=== PATIENT | female | born 1965 | race Caucasian/White ===

== ENCOUNTER 2024-05-10 17:24 | Emergency (ER) | payer OTHER, SELFPAY ==
[2024-05-10 17:31] VITALS: BP 165/104
--- NOTE | 2024-05-10 18:42 | ED.MUSCINJ ---
HPI-Injury
General
Chief Complaint: Musculo-Skeletal Complaint
Source: patient
Exam Limitations: none
Time Seen by Provider: 05/10/24 17:59
Nursing documentation reviewed up to this point in time: agreed with
History of Present Illness-Injury
Is this injury a work related problem?: No
Is pt an associate of [facility]?: No
Initial Injury comments:
Patient states she tripped over a box and fell. Denies hitting her head. No LOC. Complains of pain and swelling to left wrist. Injury occurred just [employer]
Past History
Past History
ED Past Medical History: Other (SVT, scoliosis)
ED Past Surgical History: None
Social History
Tobacco: Non-smoker
Alcohol: Occasional
Personal:
Living: with family
Review of Systems
Review of Systems
Allergies reviewed?: Yes
All Other Systems: ROS reviewed and negative except as documented in HPI and ROS
Constitutional: Reports no symptoms
Musculoskeletal: Reports joint pain (pain to left wrist)
Skin: Reports no symptoms
Neurological: Reports no symptoms
Psychiatric: Reports no symptoms
Musculoskeletal Injury Exam
Musculoskeletal Injury Exam
Left Wrist:
Pain with Movement?: Moderate
Tender to palpation?: Moderate
Soft tissue swelling?: Moderate
External deformity and angulation?: None
Joint effusion?: None
Contusion?: None
Hematoma-local bleeding into tissue?: Mild
Strain- Sprain- Tear (Connective tissue injury)?: Moderate
Crepitus with movement?: No
Joint instability?: No
Malalignment/deformity?: No
Range of motion: Limited
Distal skin color and temperature: normal-warm & good color
Capillary Refill: normal
Normal distal neurovascular exam?: Yes
Peripheral Pulses: radial (left): 3+
Phy Exam
General Physical Exam
General Presentation: well appearing and mild distress
General age: appears stated age
General Skin: warm and dry
General Habitus: normal
Musculoskeletal Exam
Musculoskeletal Exam: neuro vasc intact
Skin Exam
Skin Exam: normal color, warm/dry and no rash
Psychiatric Exam
Psychiatric Exam: normal mood/affect
Injury Course
Orders/Labs/Results
Orders:
Orders
05/10/24 17:31
Wrist, Left 3 Views CR [CR Wrist - Left Min 3 Views] Urgent
Comment:
Reason For Exam: fall
05/10/24 18:44
Sling Left-Treatment ONCE
Volar Left-Treatment ONCE
05/10/24 18:50
Hydrocodone 5/APAP 325 [[place] 5/325] 1 tablet PO NOW STA
*Radiology
Radiology exam reviewed: radiology read reviewed
*Pulse Oximetry
Patient hypoxic: no
*Critical Care Note
Total Time (30-74mins, 75-104mins- exclusive of procedures): Not Applicable
ED Attending Note
-
Portions of this chart may have been created with voice recognition software.� Occasional wrong word or��sound alike� substitutions may have occurred due to the inherent limitations of voice recognition software.
Discharge Plan
Departure
Patient Disposition: Home (Routine Discharge)
Date of Disposition: 05/10/24
Time of Disposition: 18:45
Patient with high blood pressure during this ER visit?: No
Condition: Good
Covid-19: Not Applicable
Discharge Problem:
Fracture of wrist
Instructions: Wrist Fracture (DC), How to Use a Shoulder Sling, Using Cold for Pain, Splint Care
Prescriptions:
New
hydrocodone-acetaminophen 5-325 mg tablet
1 tab PO Q4H PRN (Reason: Pain) Qty: 14 0RF
No Action
docosahexaenoic acid-epa 1 CAP capsule
1 cap PO BID
multivitamin with folic acid [Tab-A-Kandace] 1 TABLET tablet
1 tab PO DAILY
turmeric-turmeric root extract 1 EACH capsule
1 ea PO DAILY
lidocaine 1 PATCH adhesive patch,medicated
1 patch topical DAILYPRN PRN (Reason: lower back pain)
atorvastatin 40 MG tablet
40 mg PO QPM Qty: 90 3RF
carvedilol 12.5 MG tablet
12.5 mg PO BID Qty: 180 3RF
clopidogrel 75 MG tablet
75 mg PO DAILY Qty: 90 3RF
pantoprazole 40 MG tablet,delayed release (DR/EC)
40 mg PO DAILY Qty: 90 3RF
aspirin 81 MG tablet,chewable
81 mg PO DAILY 0RF
Referrals:
Екатерина Bardales DO [Active] - Call in 1-3 days for appt
Jhony Cortez DO [Family Provider] -
Interventions
Interventions:
*Risk Screen - Suicide Last Done: 05/10/24 17:32
*Neglect/Abuse Screening Last Done: 05/10/24 17:32
ED-Musculoskeletal Assessment Last Done: 05/10/24 17:44
Discharge Date and Time
Print Language: PORTUGUESE
[2024-05-10] MEDS: NORCO 5/325 1 TABLET PO (19:00)
== END 2024-05-10 19:25 | disposition home or self-care (01) ==
LOC: EMR 17:24
PROVIDERS: EMERGENCY PHYSICIAN Student in an Organized Health Care Education/Training Program; FAMILY PHYSICIAN Family Medicine
DX: S62.102A Fracture of unspecified carpal bone, left wrist, initial encounter for closed fracture (principal); W18.09XA Striking against other object with subsequent fall, initial encounter
CPT/HCPCS: 29125; 99283; 73110

== ENCOUNTER 2024-12-27 11:20 | Emergency (ER) | payer OTHER, SELFPAY ==
[2024-12-27 11:22] VITALS: BP 168/111
[2024-12-27 11:54] VITALS: BMI 29.5
[2024-12-27] MEDS: TORADOL 30 MG IV (12:03)
[2024-12-27] MEDS: VALIUM 5 MG PO (12:04)
--- NOTE | 2024-12-27 12:12 | ED.GENMED ---
History of Present Illness
General
Chief Complaint: Musculo-Skeletal Complaint
Source: patient and spouse
Exam Limitations: none
Time Seen by Provider: 12/27/24 11:33
Nursing documentation reviewed up to this point in time: agreed with
History of Present Illness
History of Present Illness:
59-year-old female past medical history of cardiomyopathy previous NH presenting to emergency department today with concerns of right-sided neck pain specifically with movement seem to for started earlier this morning progressed today physical
muscle spasm. No referred pain no numbness or weakness no chest pain or shortness of breath. Recently tested for pneumonia from urgent care. Imaging was negative but was prescribed antibiotic as well as Tessalon Perles.
Past History
Past History
ED Past Medical History: Other (SVT, scoliosis)
ED Past Surgical History: None
Social History
Tobacco: Non-smoker
Alcohol: Occasional
Personal:
Living: with family
Review of Systems
Review of Systems
Allergies reviewed?: Yes
All Other Systems: ROS reviewed and negative except as documented in HPI and ROS
Phy Exam
Physical Exam
Physical Exam:
GENERAL: Alert , in no apparent distress
EYE: pupils equal and reactive
NECK: Supple, no significant adenopathy.
ENT: Muscle spasm of the right sided sternocleidomastoid. o/p clr, mmm.
CARDIAC: Regular rate and rhythm .
LUNGS: Clear breath sounds bilaterally, no acute respiratory distress, no wheezes/rales/rhonchi
ABDOMEN: Soft, without focal tenderness, no r/g, no cvat
NEUROLOGICAL: Alert and oriented, no focal neuro deficits
SKIN: Warm and dry, skin intact.
MUSCULOSKELETAL: Muscle spasm to the right side of the neck no edema, well perfused.
PSYCH: Normal and appropriate interaction.
Course
Orders/Labs/Results
Orders:
Orders
12/27/24 11:47
Diazepam [Valium] 5 mg PO NOW STA
Ketorolac [Toradol] 30 mg IV NOW STA
12/27/24 12:06
CBC/With Diff [Complete Blood Count/With Diff] Urgent
CMP [Comprehensive Metabolic Panel] Urgent
12/27/24 12:17
EKG [Electrocardiogram (*1)] Urgent
Reason for Study: Chest Pain
EKG- Treatment ONCE
0.9% Sodium Chloride 1000 ml [Nss] 1,000 ml IV BOLUS
Abnormal Lab Results
12/27/24
12:06
Monocytes % 10.0 H %
(1.7-9.3)
Sodium 133 L mmol/L
(135-145)
Chloride 97 L mmol/L
(98-107)
Glucose 107 H mg/dl
(70-99)
AST 61 H U/L
(14-36)
ALT 70 H U/L
(0-35)
12/27/24 12:06
12/27/24 12:06
Vital Signs
Initial and Last Documented VS:
Initial Vital Signs
Temp Pulse Resp BP Pulse Ox
98.8 F 126 20 168/111 97
12/27/24 11:22 12/27/24 11:22 12/27/24 11:22 12/27/24 11:22 12/27/24 11:22
Last Documented Vital Signs
Temp Pulse Resp BP Pulse Ox
98.8 F 126 20 168/111 97
12/27/24 11:22 12/27/24 11:22 12/27/24 11:22 12/27/24 11:22 12/27/24 12:17
MDM/Problems Addressed
MDM/Problems Addressed:
59-year-old female presenting to the emergency department today with concerns of right-sided neck pain starting early this morning ongoing today severe prior to arrival. No associated shortness of breath nausea vomit weakness. Patient treated with
Valium as well as Toradol here with significant improvement of symptoms. Symptoms do seem to be consistent with mechanical pain considering it is reproducible with movement palpation. Plan for close outpatient follow-up otherwise return
precautions given.
*Pulse Oximetry
SaO2: 97
Oxygen Mode of Delivery: Room air
Patient hypoxic: no (97)
*Critical Care Note
Total Time (30-74mins, 75-104mins- exclusive of procedures): Not Applicable
ED Attending Note
-
Portions of this chart may have been created with voice recognition software.� Occasional wrong word or��sound alike� substitutions may have occurred due to the inherent limitations of voice recognition software.
Discharge Plan
Departure
Patient Disposition: Home (Routine Discharge)
Date of Disposition: 12/27/24
Time of Disposition: 13:21
Patient with high blood pressure during this ER visit?: No
Condition: Good
Covid-19: Not Applicable
Discharge Problem:
Neck strain
Instructions: Muscle Strain (DC)
Prescriptions:
New
tizanidine [Zanaflex] 4 mg capsule
4 mg PO BID PRN (Reason: muscle spasticity) Qty: 7 0RF
No Action
docosahexaenoic acid-epa 1 CAP capsule
1 cap PO BID
multivitamin with folic acid [Tab-A-Kandace] 1 TABLET tablet
1 tab PO DAILY
turmeric-turmeric root extract 1 EACH capsule
1 ea PO DAILY
lidocaine 1 PATCH adhesive patch,medicated
1 patch topical DAILYPRN PRN (Reason: lower back pain)
atorvastatin 40 MG tablet
40 mg PO QPM Qty: 90 3RF
carvedilol 12.5 MG tablet
12.5 mg PO BID Qty: 180 3RF
clopidogrel 75 MG tablet
75 mg PO DAILY Qty: 90 3RF
pantoprazole 40 MG tablet,delayed release (DR/EC)
40 mg PO DAILY Qty: 90 3RF
aspirin 81 MG tablet,chewable
81 mg PO DAILY 0RF
hydrocodone-acetaminophen 5-325 mg tablet
1 tab PO Q4H PRN (Reason: Pain) Qty: 14 0RF
Referrals:
Jhony Cortez, DO [Family Provider, Family Practice]
Activity Restrictions/Additional Instructions:
You came to the emergency department today with concerns of neck pain. This is likely a muscle strain. Please take prescribed medication and follow-up closely as an outpatient with a primary care doctor. Return for any worsening, new or
concerning symptoms.
Interventions
Interventions:
*Risk Screen - Suicide Last Done: 12/27/24 11:22
*General Assessment Last Done: 12/27/24 11:55
*Neglect/Abuse Screening Last Done: 12/27/24 11:22
*ED- Fall Risk Assessment Last Done: 12/27/24 11:55
*ED COVID-19 Vaccine History Last Done: 12/27/24 11:55
*ED Influenza Vaccine History Last Done: 12/27/24 11:55
ED-Musculoskeletal Assessment Last Done: 12/27/24 11:55
Discharge Date and Time
Print Language: ICELANDIC
[2024-12-27 12:23] LABS: Hematocrit 40.0 % (37.0-47.0); Hemoglobin 13.4 g/dL (12.0-16.0); Mean Corp Hgb Conc. 33.5 g/dL (33.0-37.0); Mean Corpuscular Volume 89.3 fL (81.0-99.0); Nucleated Red Blood Cells % 0 %; Platelet Count 230 10^3/uL (130-400); Red Cell Dist. Width 14.2 % (11.5-14.5)
[2024-12-27 12:30] LABS: ALT (SGPT) 70 U/L (0-35); AST (SGOT) 61 U/L (14-36); Albumin 4.6 g/dl (3.5-5.0); Alkaline Phosphatase 47 U/L (38-126); Blood Urea Nitrogen 15 mg/dl (7-17); Calcium 9.6 mg/dl (8.4-10.2); Carbon Dioxide 29 mmol/L (22-30); Chloride 97 mmol/L (98-107); Estimated Creatinine Clearance 116 ml/min; Glucose 107 mg/dl (70-99); Potassium 4.6 mmol/L (3.5-5.1); Sodium 133 mmol/L (135-145); Total Protein 7.4 g/dl (6.3-8.2); eGFR > 60.00
[2024-12-27] MEDS: NSS 1000 IV (12:49)
[2024-12-27 14:46] VITALS: BP 131/82
== END 2024-12-27 14:47 | disposition home or self-care (01) ==
LOC: EMR 11:20
PROVIDERS: Physician Assistant; EMERGENCY PHYSICIAN Student in an Organized Health Care Education/Training Program; FAMILY PHYSICIAN Family Medicine
DX: S16.1XXA Strain of muscle, fascia and tendon at neck level, initial encounter (principal); X58.XXXA Exposure to other specified factors, initial encounter; I42.9 Cardiomyopathy, unspecified; I25.2 Old myocardial infarction; M41.9 Scoliosis, unspecified; Z79.82 Long term (current) use of aspirin; Z79.02 Long term (current) use of antithrombotics/antiplatelets
CPT/HCPCS: 99284; 96374; 96361; 80053; 85025; 93005

== ENCOUNTER 2025-01-29 18:00 | Inpatient (IN) | payer OTHER, SELFPAY ==
[2025-01-29] VITALS (28 sets, daily range): BP systolic 90–131; BP diastolic 49–87; BMI 29.5; BMI 28.5
[2025-01-29 13:14] LABS: Hematocrit 39.6 % (37.0-47.0); Hemoglobin 13.4 g/dL (12.0-16.0); Mean Corp Hgb Conc. 33.8 g/dL (33.0-37.0); Mean Corpuscular Volume 87.6 fL (81.0-99.0); Nucleated Red Blood Cells % 0 %; Platelet Count 227 10^3/uL (130-400); Red Cell Dist. Width 14.0 % (11.5-14.5)
--- NOTE | 2025-01-29 13:21 | ED.GENMED ---
History of Present Illness
<FLORIDALMA Romero - Last Filed: 01/29/25 17:25>
General
Chief Complaint: Heart Rate Problem
Source: patient
Exam Limitations: none
Time Seen by Provider: 01/29/25 13:20
Nursing documentation reviewed up to this point in time: agreed with
History of Present Illness
History of Present Illness:
59 yr old female with PMH of Takotsubo cardiomyopathy(2019) hyperlipidemia SVT scoliosis presents to the ED for evaluation. PT reports yesterday she felt off all day and last night she felt her heart pounding around 11: 30 pm. She reports her
watch told her that her HR was 169. She did sleep however presents with persistent symptoms.
She denies any associated chest pain. She does feel slightly short of breath with symptoms. No prior history of arrhythmias.
She is presently on carvedilol no other cardiac medicines. She is followed by [facility] hydrometer tester Dr. Bernardo Mcguire
Past History
<FLORIDALMA Romero - Last Filed: 01/29/25 17:25>
Past History
ED Past Medical History: Other (SVT, scoliosis)
ED Past Surgical History: None
Social History
Tobacco: Non-smoker
Alcohol: Occasional
Personal:
Living: with family
Phy Exam
<FLORIDALMA Romero - Last Filed: 01/29/25 17:25>
General Physical Exam
General Presentation: no apparent distress
General age: appears stated age
General Skin: warm and dry
General Habitus: normal
General Mental: alert
General Hydration: appears well hydrated
Cardiovascular Exam
Cardiovascular Exam: irregularly irregular
Pulmonary Exam
Pulmonary Exam: lungs clear and no respiratory distress
Neurological Exam
Neurological Exam: alert and oriented x3
Musculoskeletal Exam
Musculoskeletal Exam: full ROM
Skin Exam
Skin Exam: normal color and warm/dry
Psychiatric Exam
Psychiatric Exam: normal mood/affect
Scores
<Kelly Bhakta DO - Last Filed: 01/30/25 08:32>
[id number] Score for Afib Stroke Risk
Age in Years (65=0, 65-74=1, >/=75=2): <65
Sex (Female=+1): Female
Congestive Heart Failure History (Yes=+1): No
Hypertension History (Yes=+1): No
Stroke/TIA/Thromboembolism History (Yes=+2): No
Vascular Disease History (Yes=+1): No
Diabetes Mellitus (Yes=+1): No
Score: 1
Anticoagulation Recommendations: Consider anticoagulation (as validated in nonvalvular fib)
Course
<FLORIDALMA Romero - Last Filed: 01/29/25 17:25>
Orders/Labs/Results
Orders:
Orders
01/29/25 12:53
Electrocardiogram (*1) Urgent
Reason for Study: Tachycardia
EKG- Treatment ONCE
01/29/25 12:58
Complete Blood Count/With Diff Urgent
NT-proBNP Urgent
TSH Reflex To Free T4 Urgent
Troponin I Urgent
01/29/25 12:59
Comprehensive Metabolic Panel Urgent
01/29/25 13:34
0.9% Sodium Chloride 1000 ml [Nss] 1,000 ml IV BOLUS
01/29/25 13:39
Diltiazem HCl [Cardizem] 10 mg IV NOW STA
01/29/25 13:45
Diltiazem 125 mg/125 ml Nss [Cardizem] 125 mg in 125 ml IV PER PROTOCOL
Initial dose in mg/hr, then titrate:: 5
Titrate to keep:: Heart rate 80-100 bpm
Titrate by mg/hr:: 5 mg/hr
Frequency of titrations (minutes):: 15
Maximum dose in mg/hr:: 15
01/29/25 15:52
Chest X-ray Portable [CR Chest Portable - 1 View] Urgent
Comment:
Reason For Exam: elevated hr
Reason Study Needs to be Portable: Patient Unstable
01/29/25 17:13
Admit/Transfer Patient As Directed
Co-Sign Provider:
Level of Care: Inpatient admission
Assign to:: IMU- Intermediate Care
Physician / Group: Hospitalist
Diagnosis: Afib
Reason for Hospitalization: Afib
Expected length of stay greater than two midnights?: Yes
ELOS- Estimated Length of Stay in days: 3
I certify the patient meets the requirements for IP care: Yes
PRN Pain Medication Management As Directed
May give lesser potent ordered pain med per pt: Yes
preference::
Protocol:: Medication orders for pain may be administered in a
manner that supports deferring to patient preference
when the pt is:
- Requesting an ordered lesser potent pain medication.
Least to most potent pain medications are defined
as: acetaminophen < NSAID < tramadol < opioids
(morphine, oxycodone, hydromorphone).
- Requesting a lesser dose of the same medication IF
ORDERED.
- Requesting a less intrusive route of administration
if both routes are prescribed by the provider (PO <
IV).
01/29/25 17:15
Code Status As Directed
Resuscitation Status: Full Code
01/29/25 20:00
Apixaban [Eliquis] 5 mg PO BID
01/29/25 20:37
Carvedilol [Coreg] 12.5 mg PO BID
Tramadol HCl [Ultram] 50 mg PO Q6HPRN PRN mild pain
01/29/25 20:37
Activity As Directed
Activity Level: Ambulate
INT (Intravenous Needle Therapy) As Directed
Comment: maintain peripheral IV access
Intake/ Output As Directed
Frequency: Per unit guidelines
Pneumatic Compression Sleeves As Directed
Type: Knee high
Vital Signs As Directed
Frequency: q4h
Weight As Directed
Frequency: Daily
DX Deep Vein Thrombosis Video Routine
01/29/25 22:19
Glycohemoglobin (HgbA1c) Routine
Troponin I Q3H
Comment: at admit & Q3H for 3 total including ED draws, obtain ECG with each level
01/30/25 03:22
Basic Metabolic Panel IN AM
Cardiovascular Evaluation IN AM
Complete Blood Count/No Diff IN AM
Magnesium IN AM
Troponin I Q3H
Comment: at admit & Q3H for 3 total including ED draws, obtain ECG with each level
01/30/25 Breakfast
NPO
Allow oral meds: Yes
Allow clear liquids: 4hrs prior to procedure
Comment: may have unrestricted clear liquid up to 4 hrs prior to scheduled procedure
01/30/25 07:07
Echo 2D MMode Color/Doppler Routine
Reason for Study: New atrial fibrillation
Cardiology Consult: Miek Sampson
01/30/25 08:00
Aspirin Chewable [Low Strength Aspirin] 81 mg PO DAILY
Cholecalciferol (Vitamin D3) [VITAMIN D3 (cholecalciferol)] 25 mcg PO DAILY
Abnormal Lab Results
01/29/25 01/29/25
12:58 12:59
Absolute Monos (auto) 0.9 H 10^3/uL
(0.1-0.6)
Monocytes % 11.7 H %
(1.7-9.3)
Glucose 114 H mg/dl
(70-99)
01/29/25 12:58
01/29/25 12:59
Vital Signs
Initial and Last Documented VS:
Initial Vital Signs
Temp Pulse Resp BP Pulse Ox
98.7 F 160 18 120/80 98
01/29/25 12:37 01/29/25 12:37 01/29/25 12:37 01/29/25 12:37 01/29/25 12:37
Last Documented Vital Signs
Temp Pulse Resp BP Pulse Ox
98.7 F 80 17 97/65 93
01/29/25 23:00 01/30/25 06:00 01/30/25 06:00 01/30/25 06:00 01/30/25 04:00
Hospice Fellow consulted with Physician
Hospice Fellow consulted with physician?: Yes
Name of Physician Consulted: Dr Bhakta
<Kelly Bhakta, DO - Last Filed: 01/30/25 08:32>
Orders/Labs/Results
Orders:
Orders
01/29/25 12:53
Electrocardiogram (*1) Urgent
Reason for Study: Tachycardia
EKG- Treatment ONCE
01/29/25 12:58
Complete Blood Count/With Diff Urgent
NT-proBNP Urgent
TSH Reflex To Free T4 Urgent
Troponin I Urgent
01/29/25 12:59
Comprehensive Metabolic Panel Urgent
01/29/25 13:34
0.9% Sodium Chloride 1000 ml [Nss] 1,000 ml IV BOLUS
01/29/25 13:39
Diltiazem HCl [Cardizem] 10 mg IV NOW STA
01/29/25 13:45
Diltiazem 125 mg/125 ml Nss [Cardizem] 125 mg in 125 ml IV PER PROTOCOL
Initial dose in mg/hr, then titrate:: 5
Titrate to keep:: Heart rate 80-100 bpm
Titrate by mg/hr:: 5 mg/hr
Frequency of titrations (minutes):: 15
Maximum dose in mg/hr:: 15
01/29/25 15:52
Chest X-ray Portable [CR Chest Portable - 1 View] Urgent
Comment:
Reason For Exam: elevated hr
Reason Study Needs to be Portable: Patient Unstable
01/29/25 17:13
Admit/Transfer Patient As Directed
Co-Sign Provider:
Level of Care: Inpatient admission
Assign to:: IMU- Intermediate Care
Physician / Group: Hospitalist
Diagnosis: Afib
Reason for Hospitalization: Afib
Expected length of stay greater than two midnights?: Yes
ELOS- Estimated Length of Stay in days: 3
I certify the patient meets the requirements for IP care: Yes
PRN Pain Medication Management As Directed
May give lesser potent ordered pain med per pt: Yes
preference::
Protocol:: Medication orders for pain may be administered in a
manner that supports deferring to patient preference
when the pt is:
- Requesting an ordered lesser potent pain medication.
Least to most potent pain medications are defined
as: acetaminophen < NSAID < tramadol < opioids
(morphine, oxycodone, hydromorphone).
- Requesting a lesser dose of the same medication IF
ORDERED.
- Requesting a less intrusive route of administration
if both routes are prescribed by the provider (PO <
IV).
01/29/25 17:15
Code Status As Directed
Resuscitation Status: Full Code
01/29/25 20:00
Apixaban [Eliquis] 5 mg PO BID
01/29/25 20:37
Carvedilol [Coreg] 12.5 mg PO BID
Tramadol HCl [Ultram] 50 mg PO Q6HPRN PRN mild pain
01/29/25 20:37
Activity As Directed
Activity Level: Ambulate
INT (Intravenous Needle Therapy) As Directed
Comment: maintain peripheral IV access
Intake/ Output As Directed
Frequency: Per unit guidelines
Pneumatic Compression Sleeves As Directed
Type: Knee high
Vital Signs As Directed
Frequency: q4h
Weight As Directed
Frequency: Daily
DX Deep Vein Thrombosis Video Routine
01/29/25 22:19
Glycohemoglobin (HgbA1c) Routine
Troponin I Q3H
Comment: at admit & Q3H for 3 total including ED draws, obtain ECG with each level
01/30/25 03:22
Basic Metabolic Panel IN AM
Cardiovascular Evaluation IN AM
Complete Blood Count/No Diff IN AM
Magnesium IN AM
Troponin I Q3H
Comment: at admit & Q3H for 3 total including ED draws, obtain ECG with each level
01/30/25 Breakfast
NPO
Allow oral meds: Yes
Allow clear liquids: 4hrs prior to procedure
Comment: may have unrestricted clear liquid up to 4 hrs prior to scheduled procedure
01/30/25 07:07
Echo 2D MMode Color/Doppler Routine
Reason for Study: New atrial fibrillation
Cardiology Consult: Mike Sampson
01/30/25 08:00
Aspirin Chewable [Low Strength Aspirin] 81 mg PO DAILY
Cholecalciferol (Vitamin D3) [VITAMIN D3 (cholecalciferol)] 25 mcg PO DAILY
Abnormal Lab Results
01/29/25 01/29/25
12:58 12:59
Absolute Monos (auto) 0.9 H 10^3/uL
(0.1-0.6)
Monocytes % 11.7 H %
(1.7-9.3)
Glucose 114 H mg/dl
(70-99)
01/29/25 12:58
01/29/25 12:59
Vital Signs
Initial and Last Documented VS:
Initial Vital Signs
Temp Pulse Resp BP Pulse Ox
98.7 F 160 18 120/80 98
01/29/25 12:37 12/15/25 12:37 01/29/25 12:37 01/29/25 12:37 01/29/25 12:37
Last Documented Vital Signs
Temp Pulse Resp BP Pulse Ox
98.7 F 80 17 97/65 93
01/29/25 23:00 01/30/25 06:00 01/30/25 06:00 01/30/25 06:00 01/30/25 04:00
<FLORIDALMA Romero - Last Filed: 01/29/25 17:25>
MDM/Problems Addressed
Differential Diagnosis Includes:
Not limited to A-fib
MDM/Problems Addressed:
As documented patient is a 59-year-old female with Takotsubo cardiomyopathy SVT presented in rapid A-fib. She 'did not feel right' yesterday and last night her heart rate was in the 160s. No known prior history of documented bleeding.
Patient presented with heart rate as high as the 160s here in the ER.
Patient was given a liter of fluids and is on max dose of Cardizem however still tachycardic as high as the 120s. Blood pressure in the high 90s at this time. She has no associated chest pain. No shortness of breath she is well-appearing. Labs
reviewed no history of CHF BNP is elevated will check a chest x-ray. Patient will require admission. Case discussed with ED physician case discussed with cardiology on-call Dr. Marcos who will see patient. Recommend admission to hospital service.
Chronic conditions affecting care:
Takotsubo cardiomyopathy
<FLORIDALMA Romero - Last Filed: 01/29/25 17:25>
*Radiology
Radiology exam reviewed: radiology read reviewed
*Pulse Oximetry
SaO2: 98
Oxygen Mode of Delivery: Room air
Patient hypoxic: no
*EKG
Interpreted by ED Provider?: Yes
Heart Rate: 152
Rate: tachycardiac
Rhythm: a-fib
*Critical Care Note
Total Time (30-74mins, 75-104mins- exclusive of procedures): Not Applicable
<FLORIDALMA Romero - Last Filed: 01/29/25 17:25>
Patient Management
Discussion with other providers: Admission Nurse Coordinator (cardiology DR Marcos )
ED Attending Note
<FLORIDALMA Romero - Last Filed: 01/29/25 17:25>
-
Portions of this chart may have been created with voice recognition software.� Occasional wrong word or��sound alike� substitutions may have occurred due to the inherent limitations of voice recognition software.
<Kelly Bhakta DO - Last Filed: 01/30/25 08:32>
ED Attending Note
Patient seen and examined by attending physician: Yes
I performed the substantive portion of visit, reviewed & personally made and approve the management plan that is documented in note by myself or BELL.: Yes
I performed a history and physical exam of patient and discussed management with resident, I reviewed resident's note and agree with documented findings and plan of care.: Yes
ED Attending Note:
59-year-old female with history of hyperlipidemia presenting to the emergency department for palpitations and elevated heart rate. Patient reports that she was standing in bed last night and felt like her heart was racing. Symptoms persisted into
the day and her watch was reading atrial fibrillation. She sent the reading to her hydrometer tester who recommended that she come to the hospital. Denies any known history of A-fib, however does note in the past she has felt like she has had skipped
beats and has thought that she was in A-fib, without atrial fibrillation detected. Does note family history of atrial fibrillation. Denies associated chest pain or difficulty breathing.
Vital signs on arrival significant for tachycardia. On exam, patient resting comfortably, no acute distress. EKG on arrival confirms atrial fibrillation with RVR. Consistent with cardiac exam. Patient otherwise hemodynamically stable. Patient
started on Cardizem drip prior to my assessment with heart rate slightly improved, however still in atrial fibrillation rhythm. Heart rate remains in the 110s to 120s range. Do not feel comfortable with cardioversion at this time, given report
that he has felt skipped beats in the past and has thought that she may or may not have been in A-fib in the past. Discussed with cardiology, plan for admission for continued diltiazem drip and cardiac consultation
Discharge Plan
Departure
Patient Disposition: Admit
Date of Disposition: 01/29/25
Time of Disposition: 16:02
Admit to: Telemetry
Admit to doctor: hospitalist
Presentation/result/management discussed w/ accepting MD/DO: Hospitalist
Patient with high blood pressure during this ER visit?: No
Condition: Fair
Covid-19: Not Applicable
Discharge Problem:
Atrial fibrillation, rapid
Interventions
Interventions:
*General Assessment Last Done: 01/29/25 12:37
*Neglect/Abuse Screening Last Done: 01/29/25 12:37
*ED COVID-19 Vaccine History Last Done: 01/29/25 13:21
*ED Influenza Vaccine History Last Done: 01/29/25 13:21
[facility] Risk Assessment Tool Last Done: 01/29/25 13:20
*Risk Screen - Suicide (C-SSRS) Last Done: 01/29/25 13:22
*Nursing Disposition Last Done: 01/29/25 20:33
ED- Cardiac Assessment Last Done: 01/29/25 13:22
ED- Pulmonary Assessment Last Done: 01/29/25 13:22
Discharge Date and Time
Discharge Date/Time: 01/29/25 20:34
[2025-01-29 13:29] LABS: ALT (SGPT) 21 U/L (0-35); AST (SGOT) 24 U/L (14-36); Albumin 4.4 g/dl (3.5-5.0); Alkaline Phosphatase 44 U/L (38-126); Blood Urea Nitrogen 10 mg/dl (7-17); Calcium 10.0 mg/dl (8.4-10.2); Carbon Dioxide 27 mmol/L (22-30); Chloride 101 mmol/L (98-107); Estimated Creatinine Clearance 116 ml/min; Glucose 114 mg/dl (70-99); Potassium 3.9 mmol/L (3.5-5.1); Sodium 135 mmol/L (135-145); Total Protein 7.1 g/dl (6.3-8.2); eGFR > 60.00
[2025-01-29] MEDS: NSS 1000 IV (13:36)
[2025-01-29 13:38] LABS: Troponin I 0.021 ng/ml
[2025-01-29] MEDS: CARDIZEM 10 MG IV (13:45)
[2025-01-29] MEDS: CARDIZEM 125 IV ×2 (13:45→21:25)
--- NOTE | 2025-01-29 16:25 | CON.CAR ---
Addendum entered and electronically signed by Ancelmo Marcos MD 01/29/25 19:31:
59-year-old woman with history of Takotsubo cardiomyopathy October 2018, presenting now with tachycardia and smart watch pulse readings of 169. Typically followed by Dr. Bernardo Mcguire
PMH: Takotsubo cardiomyopathy, hyperlipidemia, SVT, scoliosis,
Medications on admission aspirin 81 once a day, carvedilol 12.5 twice daily
SH: , occasional alcohol non-smoker
Rest of history as below, reviewed in detail and agree, unless otherwise specified
115/72, pulse 97, respiratory rate 18, afebrile, head neck exam unremarkable, lungs are clear, irregular rate and rhythm without obvious murmurs, JVD okay, abdomen benign extremities without clubbing cyanosis or edema
ECG: Atrial fibrillation with RVR, possible septal [place], occasional PVCs versus aberrant ventricular conduction
Hemoglobin 13.4, white count 7.4, platelets 227, potassium 3.9, sodium 135, glucose 114, proBNP 1930, troponin detectable at 0.21, TSH is normal
Impression:
New onset atrial fibrillation, [id number] score is 2/3
History of Takotsubo cardiomyopathy
History of hyperlipidemia
History of SVT
Scoliosis
Plan:
She presents with atrial fibrillation with a rapid ventricular response. Currently she is roughly 24 hours into her A-fib, presuming that her watch is accurate.
proBNP is elevated but there is no evidence of acute heart failure on exam
Her [id number] score is 2 or 3, depending on whether we consider her to have a cardiomyopathy.
Rate is reasonably controlled now on diltiazem. As an outpatient she is also on carvedilol. She has been taking aspirin.
Continue diltiazem and beta-karis, check echo.
If she fails to convert to sinus rhythm spontaneously, we will plan on ANOOP cardioversion in the a.m.
Original Note:
Consultation
Consultation Request
Date/Time Consultation Requested: 01/29/2025
Date/Time Consultation Performed: 01/29/2025
Requesting Provider: Lamar HEDRICK
Performing Provider: Iveth Barnett PA-C for Dr. JERO Marcos
Reason for Consultation: New Afib
Medical History
-
History of Present Illness:
HPI: Janine is a 59-year-old female with past medical history of Takotsubo cardiomyopathy in 2019 with recovery of EF, hyperlipidemia, SVT, and scoliosis. She presented to [facility] ER for evaluation of palpitations/heart racing. She states yesterday
she felt 'off' but then she woke up overnight at 11:00 with her heart pounding. Her watch notified her that her heart rate was in the 160s. She was able to fall back asleep, but when she woke up this morning she continued to feel poorly and came
to the ER for evaluation. On arrival to ER, she was noted to be in new atrial fibrillation with RVR. She reports no prior history of prolonged episode of palpitations, but has noted occasional brief episodes of skipped/extra beats. She follows
with [facility] cardiology and has no prior history of arrhythmia. Has been stable from a cardiac standpoint since 2019 admission for Takotsubo cardiomyopathy. Denies any chest pain, dizziness, lightheadedness, or shortness of breath, but does state that
she feels better if she takes a deep breath. In ER, started on Cardizem drip, and heart rates are improved. Initial EKG showed rapid A-fib with heart rate 152 bpm. Heart rates are now in the 90s to 100s. She notes improvement in her symptoms
with this, but does still feel irregular heart rate.
PMH:
Takotsubo CM 2019
HLD
SVT
Scoliosis
Past Medical History
Past Medical History: Other (In HPI)
Social History
Tobacco: Non-Smoker
Alcohol: Daily (shot of bourbon)
Drug: None
Personal:
Living: With Family
Family History
Family History: Reviewed & Not Pertinent
Allergies / Home Medications
Allergy/AdvReac Type Severity Reaction Status Date / Time
erythromycin base (From Allergy hive Verified 12/27/24 11:22
David-Tab)
oxycodone HCl (From Percocet) Allergy hallucinati Verified 12/27/24 11:22
ons
�Medication �Instructions �Recorded �Confirmed �Type
aspirin 81 mg chewable tablet 81 mg PO DAILY 10/26/18 01/29/25 Rx
carvedilol 12.5 mg tablet 12.5 mg PO BID #180 tabs 10/26/18 01/29/25 Rx
Lactobac no.2-Bifidobac no.1-S. 1 cap PO DAILY 01/29/25 01/29/25 History
thermo 112.5 billion cell capsule
(Visbiome)
cholecalciferol (vitamin D3) 25 25 mcg PO DAILY 01/29/25 01/29/25 History
mcg (1,000 unit) tablet (Vitamin
D3)
coffee extract 100 mg-phosphatidyl 1 cap PO DAILY Supplement 01/29/25 01/29/25 History
serine 100 mg capsule (Neuriva
Original)
cyanocobalamin (vitamin B-12) 1,000 mcg PO DAILY 01/29/25 01/29/25 History
1,000 mcg tablet
therapeutic multivitamin 1 tab PO DAILY 01/29/25 01/29/25 History
tramadol 50 mg tablet 50 mg PO Q6H PRN mild pain 01/29/25 01/29/25 History
turmeric 400 mg capsule 400 mg PO DAILY Supplement 01/29/25 01/29/25 History
Review of Systems
-
History Source: Patient
All other systems: Negative unless noted
Physical Exam
Vital Signs
Temp Pulse Resp BP Pulse Ox
98.7 F 97 18 115/72 98
01/29/25 12:37 01/29/25 16:15 01/29/25 16:15 01/29/25 16:15 01/29/25 15:07
Lab Results
01/29/25 12:58
01/29/25 12:59
Troponin I 0.021 ng/ml 01/29/25 12:58
Aal-I-Ivxdnmvksgu Pept 1930 pg/ml 01/29/25 12:58
Physical Exam
General: Well Developed, Well Nourished and No Apparent Distress
HEENT: Normocephalic, Anicteric and Moist Mucous Membranes
Respiratory: Clear and Non Labored Respirations
Cardiac: S1/S2 and Irregular Rhythm
Musculoskeletal: No Clubbing, No Cyanosis and No Edema
Skin: Warm and Dry
Neuro: AO x 3 and Nonfocal/Grossly Intact
Psych: Calm
Impression / Plan
-
PCP: Dr. Cortez
Manager Of Organizational Development: Dr. Mcguire ([facility] Cardiol[facility])
Impression:
Presented with palpitations
Atrial fibrillation w/ RVR, new diagnosis
Takotsubo CM 2018
HLD
SVT
Scoliosis
Echo 01/29/2025: Study pending
Plan:
-Presented with palpitations, heart pounding. Admitted with new atrial fibrillation w/ RVR. HR 152 on initial EKG.
-Remains in afib on review of telemetry, but HR improved on cardizem gtt. Continue for now.
-Continue carvedilol 12.5mg BID.
-Will start anticoagulation with Eliquis 5mg BID. Will have CM assess cost. CHADSVASc score 3 (Female, CM, HTN).
-Check echo.
-TSH within normal limits at 1.22. K 3.9.
-Troponin 0.021. No chest pain.
-No h/o sleep study. Consider as OP.
-If remains in atrial fibrillation in AM, would consider ANOOP/CV. Will make NPO after midnight.
-Will request records from primary dental assistant.
HPI: Janine is a 59-year-old female with past medical history of Takotsubo cardiomyopathy in 2019 with recovery of EF, hyperlipidemia, SVT, and scoliosis. She presented to [facility] ER for evaluation of palpitations/heart racing. She states yesterday
she felt 'off' but then she woke up overnight at 11:00 with her heart pounding. Her watch notified her that her heart rate was in the 160s. She was able to fall back asleep, but when she woke up this morning she continued to feel poorly and came
to the ER for evaluation. On arrival to ER, she was noted to be in new atrial fibrillation with RVR. She reports no prior history of prolonged episode of palpitations, but has noted occasional brief episodes of skipped/extra beats. She follows
with [facility] cardiology and has no prior history of arrhythmia. Has been stable from a cardiac standpoint since 2019 admission for Takotsubo cardiomyopathy. Denies any chest pain, dizziness, lightheadedness, or shortness of breath, but does state that
she feels better if she takes a deep breath. In ER, started on Cardizem drip, and heart rates are improved. Initial EKG showed rapid A-fib with heart rate 152 bpm. Heart rates are now in the 90s to 100s. She notes improvement in her symptoms
with this, but does still feel irregular heart rate.
Data Reviewed
-
EKG: Tracing Personally Visualized and interpreted
Labs: Labs Reviewed by me
Old Records: Requested
--- NOTE | 2025-01-29 17:02 | HPS.HSE ---
Family Physician
-
Family Physician: Jhony Cortez
Chief Complaint
-
Afib
History of Present Illness
59 yr old woman with a PMH of Takotsubo cardiomyopathy (2019), hyperlipidemia, SVT, felt 'off' all day and last night and then felt her heart pounding around 11: 30 pm yesterday. She reports her watch told her that her HR was 169. She did sleep
however in am had persistent symptoms. She denies any associated chest pain. She does feel slightly short of breath with symptoms. No prior history of arrhythmias. She is presently on carvedilol no other cardiac medicines. She is followed by
[facility] elevator troubleshooter Dr. Bernardo Mcguire. At the time of my interview she stated she felt better once her heart rate was slowed down to 110 on a dilt gtt.
Medical History
Past Medical History
Past Medical History: Reports Other
Additional Past Medical History:
Stress fracture of left radius
Acute myocardial infarction, subendocardial infarction
2-vessel coronary artery disease
Non-rheumatic tricuspid valve insufficiency
hyperlipoproteinemia
takotsubo 2019
scoliosis
Past Surgical History: Reports None
Social History
Tobacco: Non-smoker
Alcohol: Occasional
Drug: None
Personal:
Living: With Family
Family History
Family History: Not pertinent
Allergies / Home Medications
Allergies reflects when Allergies were last updated in [facility].
Home Medications with original date entered in [facility]
Allergy/Medication List:
Allergies
Allergy/AdvReac Type Severity Reaction Status Date / Time
erythromycin base (From Allergy hive Verified 12/27/24 11:22
David-Tab)
oxycodone HCl (From Percocet) Allergy hallucinati Verified 12/27/24 11:22
ons
Home Medications
aspirin 81 mg chewable tablet 81 mg PO DAILY 10/26/18
carvedilol 12.5 mg tablet 12.5 mg PO BID #180 tabs 10/26/18
Lactobac no.2-Bifidobac no.1-S. thermo 112.5 billion cell capsule (Visbiome) 1 cap PO DAILY 01/29/25
cholecalciferol (vitamin D3) 25 mcg (1,000 unit) tablet (Vitamin D3) 25 mcg PO DAILY 01/29/25
coffee extract 100 mg-phosphatidyl serine 100 mg capsule (Neuriva Original) 1 cap PO DAILY Supplement 01/29/25
cyanocobalamin (vitamin B-12) 1,000 mcg tablet 1,000 mcg PO DAILY 01/29/25
therapeutic multivitamin 1 tab PO DAILY 01/29/25
tramadol 50 mg tablet 50 mg PO Q6H PRN mild pain 01/29/25
turmeric 400 mg capsule 400 mg PO DAILY Supplement 01/29/25
Review of Systems
-
History Source: Patient
A 12 point ROS was completed and negative except as noted: Yes
Physical Exam
Vital Signs
Vital Signs
Temp Pulse Resp BP Pulse Ox
98.7 F 97 18 115/72 98
01/29/25 12:37 01/29/25 16:15 01/29/25 16:15 01/29/25 16:15 01/29/25 15:07
Physical Exam
General: Well Developed, Well Nourished, No Apparent Distress and Conversant
HEENT: Nose Appears Normal and Ears Appear Normal
Respiratory: Clear
Cardiac: S1/S2, Irregular Rhythm and Tachycardia
GI: Soft, Non Tender and Non Distended
Musculoskeletal: No Clubbing, No Cyanosis and No Edema
Neuro: Awake, Alert, Oriented and AO x 3
Psych: Calm
Laboratory Results
-
01/29/25 12:58
01/29/25 12:59
Laboratory Results
Total Bilirubin 1.2 mg/dl (0.2-1.3) 01/29/25 12:59
AST 24 U/L (14-36) 01/29/25 12:59
ALT 21 U/L (0-35) 01/29/25 12:59
Alkaline Phosphatase 44 U/L (38-126) 01/29/25 12:59
Troponin I 0.021 ng/ml 01/29/25 12:58
Data Reviewed
-
Lab Data: Labs Reviewed by me
Impression/Plan
-
IMPRESSION:
59 woman with rapid afib.
PLAN:
1. Rapid afib. New. Patient seen by cardiology
Cardiology recommendations:
'-Presented with palpitations, heart pounding. Admitted with new atrial fibrillation w/ RVR. HR 152 on initial EKG.
-Remains in afib on review of telemetry, but HR improved on cardizem gtt. Continue for now.
-Continue carvedilol 12.5mg BID.
-Will start anticoagulation with Eliquis 5mg BID. Will have CM assess cost. CHADSVASc score 3 (Female, CM, HTN).
-Check echo.
-TSH within normal limits at 1.22. K 3.9.
-Troponin 0.021. No chest pain.
-No h/o sleep study. Consider as OP.
-If remains in atrial fibrillation in AM, would consider ANOOP/CV. Will make NPO after midnight.
-Will request records from primary elevator troubleshooter.'
Will follow recommendations from cardiology.
Full code
Eliquis for DVTp
[2025-01-29] MEDS: ELIQUIS 5 MG PO (20:16)
--- NOTE | 2025-01-29 20:58 | PTCARENOTE ---
pt admitted to [facility]- converted to SINUS- CARDIZEM GTT WEANED TO 10
[2025-01-29] MEDS: COREG 12.5 MG PO (21:24)
--- NOTE | 2025-01-29 22:34 | PTCARENOTE ---
remains in sinus- cardizem gtt at 5- ambulated to br without difficulty. ax3 afebrile bp wnl
[2025-01-29 22:55] LABS: Troponin I 0.014 ng/ml
[2025-01-30] VITALS (10 sets, daily range): BP systolic 86–116; BP diastolic 56–76; BMI 28.5
[2025-01-30 03:59] LABS: Blood Urea Nitrogen 10 mg/dl (7-17); Calcium 8.6 mg/dl (8.4-10.2); Carbon Dioxide 24 mmol/L (22-30); Chloride 107 mmol/L (98-107); Estimated Creatinine Clearance 114 ml/min; Glucose 96 mg/dl (70-99); HDL Cholesterol 65 mg/dl; LDL Cholesterol, Calculated 102 mg/dl; Magnesium 1.8 mg/dl (1.6-2.3); Potassium 3.8 mmol/L (3.5-5.1); Very Low Density Lipoprotein 12 mg/dl (0-30); eGFR > 60.00
[2025-01-30 04:04] LABS: Sodium 137 mmol/L (135-145)
[2025-01-30 04:11] LABS: Troponin I 0.022 ng/ml
[2025-01-30 06:06] LABS: Hematocrit 32.6 % (37.0-47.0); Hemoglobin 11.3 g/dL (12.0-16.0); Mean Corp Hgb Conc. 34.7 g/dL (33.0-37.0); Mean Corpuscular Volume 87.6 fL (81.0-99.0); Platelet Count 180 10^3/uL (130-400); Red Cell Dist. Width 14.2 % (11.5-14.5)
--- NOTE | 2025-01-30 08:31 | W.PN.CARDCBS ---
Today's Communication / Plan
-
Okay for discharge if echo okay
See below for recommendations
Impression / Plan
-
PCP: Dr. Cortez
Acquisitions Logistics Analyst: Dr. Mcguire ([facility] Cardiolgy)
Impression:
Presented with palpitations
Atrial fibrillation w/ RVR, new diagnosis
Takotsubo CM 2018
HLD
SVT
Scoliosis
Echo 01/29/2025: Study pending
Plan:
She looks well and has converted to sinus rhythm. We have canceled transesophageal echo and cardioversion. Her troponin was minimally detectable but I do not think this needs to be pursued further at this time.
Will await transthoracic echo.
Stop IV diltiazem
Presuming echo is satisfactory I would stop aspirin and continue Eliquis 5 mg twice daily at discharge.
Continue carvedilol at 12.5 mg twice daily.
Okay for discharge from our standpoint.
Her rabbet operator is Dr. Mcguire at [facility]. He should follow-up to her.
Presuming echo is okay we will sign off, please call if problems.
HPI: Janine is a 59-year-old female with past medical history of Takotsubo cardiomyopathy in 2019 with recovery of EF, hyperlipidemia, SVT, and scoliosis. She presented to [facility] ER for evaluation of palpitations/heart racing. She states yesterday
she felt 'off' but then she woke up overnight at 11:00 with her heart pounding. Her watch notified her that her heart rate was in the 160s. She was able to fall back asleep, but when she woke up this morning she continued to feel poorly and came
to the ER for evaluation. On arrival to ER, she was noted to be in new atrial fibrillation with RVR. She reports no prior history of prolonged episode of palpitations, but has noted occasional brief episodes of skipped/extra beats. She follows
with [facility] cardiology and has no prior history of arrhythmia. Has been stable from a cardiac standpoint since 2019 admission for Takotsubo cardiomyopathy. Denies any chest pain, dizziness, lightheadedness, or shortness of breath, but does state that
she feels better if she takes a deep breath. In ER, started on Cardizem drip, and heart rates are improved. Initial EKG showed rapid A-fib with heart rate 152 bpm. Heart rates are now in the 90s to 100s. She notes improvement in her symptoms
with this, but does still feel irregular heart rate.
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
Subjective
Date of Service: January 30, 2025:
59-year-old woman with history of Takotsubo cardiomyopathy October 2018, presenting now with tachycardia and smart watch pulse readings of 169. Typically followed by Dr. Bernardo Mcguire
PMH: Takotsubo cardiomyopathy, hyperlipidemia, SVT, scoliosis,
Medications on admission aspirin 81 once a day, carvedilol 12.5 twice daily
SH: , occasional alcohol non-smoker
Current meds: IV diltiazem, apixaban 5 mg
97/65, pulse 80, respiratory rate 17, afebrile sats are 93%, head neck exam is unremarkable, lungs are clear, cardiac exam is notable for a regular rate and rhythm without murmurs or gallops. Extremities are benign, and neck exam unremarkable,
Hemoglobin 11.3, platelets 180, BUN and creatinine are 10 and 0.5, potassium 3.8, magnesium 1.8, troponin 0.022, proBNP was 1930, LDL is 102, TSH is normal
Objective
Labs:
01/30/25 03:22
01/30/25 03:22
Labs
Hgb 11.3 g/dL (12.0-16.0) L 01/30/25 03:22
Hct 32.6 % (37.0-47.0) L 01/30/25 03:22
Plt Count 180 10^3/uL (130-400) D 01/30/25 03:22
Sodium 137 mmol/L (135-145) 01/30/25 03:22
Potassium 3.8 mmol/L (3.5-5.1) 01/30/25 03:22
BUN 10 mg/dl (7-17) 01/30/25 03:22
Creatinine 0.5 mg/dL (0.6-1.0) L 01/30/25 03:22
Glucose 96 mg/dl (70-99) 01/30/25 03:22
Troponins
01/29/25 01/29/25 01/29/25
12:58 20:37 22:19
Troponin I 0.021 Cancelled 0.014
01/30/25
03:22
Troponin I 0.022 D
Vital Signs and I&O:
Vital Signs
Temp Pulse Resp BP Pulse Ox
37.1 C 80 17 97/65 93
01/29/25 23:00 01/30/25 06:00 01/30/25 06:00 01/30/25 06:00 01/30/25 04:00
Vital Signs
Temp Pulse Resp BP Pulse Ox
37.1 C 80 17 97/65 93
01/29/25 23:00 01/30/25 06:00 01/30/25 06:00 01/30/25 06:00 01/30/25 04:00
Intake & Output
01/28/25 01/29/25 01/30/25 01/31/25
07:59 07:59 07:59 07:59
Intake Total 120 / 120
Balance 120 / 120
Physical Exam
Physical Exam
See above
[2025-01-30] MEDS: ELIQUIS 5 MG PO (08:34)
[2025-01-30] MEDS: VITAMIN D3 (cholecalciferol) 25 MCG PO (08:34)
[2025-01-30] MEDS: COREG 12.5 MG PO (08:34)
[2025-01-30 08:52] LABS: Glycohemoglobin (HgbA1c) 5.5 % (4.0-5.9)
--- NOTE | 2025-01-30 11:09 | CM ---
I.A: Completed By SHERI Hayes.
Patient lives in a [address] with , 2 STI, 14 STI, with a Powder Room on the 1st Floor. DME: None, No VN/PT, Only Outpatient currently for her Back.
PCP: Dr. Jhony Cortez
Pharm: [facility]
Patient has transport home. Anticipate Home No Needs
--- NOTE | 2025-01-30 12:59 | W.PN.HOSP.TC ---
Today's Communication/Plan
-
Cont Coreg
Eliquis
F/u Cards
Assessment / Plan
Assessment / Plan
Physical Exam
General: Well Developed, Well Nourished, No Apparent Distress and Conversant
HEENT: Nose Appears Normal and Ears Appear Normal
Respiratory: Clear
Cardiac: regular Rhythm and rate
GI: Soft, Non Tender and Non Distended
Musculoskeletal: No Clubbing, No Cyanosis and No Edema
Neuro: Awake, Alert, Oriented and AO x 3
Psych: Calm
#Atrial fibrillation with RVR, new diagnosis
� Converted to sinus rhythm
� Continue Coreg 12.5 mg twice daily
� Follow-up echocardiogram
� Eliquis 5 mg twice daily
� If echo unremarkable, can stop aspirin
� Follow-up cardiology outpatient
#DVT ppx
-Eliquis
More than 30 minutes spent in discharge including
Final examination of the patient
Summarizing hospital stay
Instructions for continuing care to all relevant caregivers
Preparation of discharge records, prescriptions, and referral forms
Total time spent (in minutes): 36
Anticipated Discharge: Today
Subjective/Interval History
-
Date of Service: January 30, 2025
Converted to sinus rhythm
Objective Data
-
Labs:
Laboratory Results
01/30/25
03:22
WBC 5.3
Hgb 11.3 L
Hct 32.6 L
Plt Count 180 D
Sodium 137
Potassium 3.8
Chloride 107
Carbon Dioxide 24
BUN 10
Creatinine 0.5 L
Glucose 96
Calcium 8.6
Vital Signs:
Vital Signs
Temp Pulse Resp BP Pulse Ox
98.7 F 80 17 97/65 93
01/29/25 23:00 01/30/25 06:00 01/30/25 06:00 01/30/25 06:00 01/30/25 04:00
I&O
01/29/25 01/30/25 01/31/25
06:59 06:59 06:59
Intake Total 120 / 120
Balance 120 / 120
Review of Systems
-
History Source: Patient
All other systems: Not reviewed unless documented
Data Reviewed
-
Diagnostic Radiology: Report Reviewed by me
Labs: Labs Reviewed by me
--- NOTE | 2025-01-30 14:26 | W.DS.TRANS ---
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
-
Discharge Instructions:
Discharge Diagnosis/Procedures Atrial fibrillation, converted to sinus rhythm
Diet Low Cholesterol,Low Fat
Activity As tolerated
Blood Work CBC and CMP within 1 week with PCP
Instructions:
Stand-Alone Forms:
Changes to Home Medications: Yes
Discharge Medications:
DC Medications w/original date entered in [facility]
carvedilol 12.5 mg tablet 12.5 mg PO BID #180 tabs 10/26/18
Lactobac no.2-Bifidobac no.1-S. thermo 112.5 billion cell capsule (Visbiome) 1 cap PO DAILY Gastrointestinal Issue 01/29/25
cholecalciferol (vitamin D3) 25 mcg (1,000 unit) tablet (Vitamin D3) 25 mcg PO DAILY Supplement 01/29/25
coffee extract 100 mg-phosphatidyl serine 100 mg capsule (Neuriva Original) 1 cap PO DAILY Supplement 01/29/25
cyanocobalamin (vitamin B-12) 1,000 mcg tablet 1,000 mcg PO DAILY Supplement 01/29/25
therapeutic multivitamin 1 tab PO DAILY Supplement 01/29/25
tramadol 50 mg tablet 50 mg PO Q6H PRN mild pain 01/29/25
turmeric 400 mg capsule 400 mg PO DAILY Supplement 01/29/25
apixaban 5 mg tablet (Eliquis) 5 mg PO BID 30 days #60 tabs 01/30/25
Home Medication Changes
apixaban 5 mg tablet (Eliquis) 5 mg PO BID 30 days #60 tabs 01/30/25
Pending Results: No
--- NOTE | 2025-01-30 14:45 | CM ---
F/U: PLAN: DC no Needs.
== END 2025-01-30 19:00 | disposition home or self-care (01) | DRG 309 ==
LOC: IMU 18:00
PROVIDERS: Emergency Medicine; ADMITTING PHYSICIAN Internal Medicine; ATTENDING PHYSICIAN Internal Medicine; CONSULT PHYSICIAN Internal Medicine Cardiovascular Disease; EMERGENCY PHYSICIAN Student in an Organized Health Care Education/Training Program; FAMILY PHYSICIAN Family Medicine
DX: I48.91 Unspecified atrial fibrillation (principal); I51.81 Takotsubo syndrome; E78.5 Hyperlipidemia, unspecified; I47.10 Supraventricular tachycardia, unspecified; I25.2 Old myocardial infarction; I25.10 Atherosclerotic heart disease of native coronary artery without angina pectoris; M41.9 Scoliosis, unspecified; Z79.82 Long term (current) use of aspirin; Z79.899 Other long term (current) drug therapy; I10 Essential (primary) hypertension; Z79.01 Long term (current) use of anticoagulants
CPT/HCPCS: 71045; 80048; 80053; 80061; 83036; 83735; 83880; 84443; 84484; 85025; 85027; 93005; 93306; 96361; 96374; 99285